=== PATIENT | female | born 1975 | race Caucasian/White ===

== ENCOUNTER 2016-07-08 11:11 | Emergency (ER) | payer OTHER ==
[2016-07-08] MEDS ORDERED: predniSONE 20 MG TAB As Ordered ONE (12:05)
--- NOTE | 2016-07-08 12:57 | EDDOCDS ---
Physician Documentation [facility] Name: Carolina Chamorro Age: 40 yrs Sex: Female : 1975 Arrival Date: 07/08/2016 Time: 11:11 Bed 13 Private MD: Sherry Gaxiola Disposition: 07/08/16 12:51 Discharged to Home/Self Care. Impression: Insect bite (nonvenomous) of hand. - Condition is Stable. - Discharge Instructions: Allergies. - Prescriptions for Prednisone 20 mg Oral Tablet - take 1 tablet by ORAL route once daily for 5 days; 5 tablet. Zyrtec 10 mg Oral Tablet - take 1 tablet by ORAL route once daily As needed; 20 tablet. - Medication Reconciliation, Local Pharmacy Hours form. - Follow up: Sherry Gaxiola MD; When: 4 - 5 days; Reason: Recheck today's complaints, Continuance of care. - Problem is an acute exacerbation. - Symptoms have improved. Historical: - Allergies: no known allergies; - Home Meds: 1. BCP Oral 1 tab once daily 2. Benadryl 3 tsp Oral (Last dose: 07/08/2016 10:30) - PMHx: rye syndrome; - PSHx: Tonsillectomy; Cholecystectomy; Adenoidectomy; Tubes in ears; - Social history: Smoking status: Patient states was never smoker of tobacco. No barriers to communication noted, The patient speaks fluent Faroese, Speaks appropriately for age. - Family history: Not pertinent. - : The pt / caregiver states he / she is not on anticoagulants. Home medication list is obtained from the patient. - Exposure Risk Screening:: None identified. 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 6 in. (167.64 cm); Pain 0/10; 11:13 Body Mass Index 22.43 (63.05 kg, 167.64 cm) dem1 MDM: 12:03 predniSONE 40 mg PO once; administer with food or milk ordered. ke 12:46 Financial registration complete. mm15 12:46 [facility] Payment Agreement was scanned into [employer] and attached to record. mm15 Administered Medications: 12:08 Drug: predniSONE 40 mg [prednisone 20 mg tablet (2 tabs)] Route: PO; js13 Signatures: Camille Kenney RN RN srm Elsner, Karl, FNP ACID TENDER Sadia Barrow RN RN js13 Corey Cano mm15 The chart was reviewed and I authenticate all verbal orders and agree with the evaluation and treatment provided.Attachments: 12:46 [facility] [place] mm15 MTDD
--- NOTE | 2016-07-08 12:57 | EDDOCDS ---
Nurse's Notes [facility] Name: Carolina Chamorro Age: 40 yrs Sex: Female : 1975 Arrival Date: 07/08/2016 Time: 11:11 Bed 13 Private MD: Sherry Gaxiola Diagnosis: Insect bite (nonvenomous) of hand Presentation: 07/08 11:14 Presenting complaint: Patient states: stung by a bee on left palm of hand. states srm having difficulty swallowing but no difficulty breathing. Presenting complaint: Patient states: no redness or swelling to bee sting site. Adult Sepsis Screening: The patient does not have new or worsening altered mentation. Patient's respiratory rate is less than 22. Systolic blood pressure is greater than 100. Patient has a qSOFA score of 0- Negative Sepsis Screen. Suicide/Homicide risk assessment- the patient denies having any suicidal and/or homicidal ideations and does not present with any other emotional, behavioral or mental health complaints. Status: Patient is not a director of employer services or dependent. Transition of care: patient was not received from another setting of care. 11:14 Acuity: HAYES Level 3 srm 11:14 Method Of Arrival: Walkin/Carried/Asstd srm Triage Assessment: 11:16 General: Appears in no apparent distress, Behavior is appropriate for age, cooperative. srm Pain: Denies pain. HIV screening NA for this visit Offered previously. 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 BCP Oral 1 tab once daily 2. Benadryl 3 tsp Oral (Last dose: 07/08/2016 10:30) - PMHx: rye syndrome; - PSHx: Tonsillectomy; Cholecystectomy; Adenoidectomy; Tubes in ears; - Social history: Smoking status: Patient states was never smoker of tobacco. No barriers to communication noted, The patient speaks fluent Equ[place] Guinean, Speaks appropriately for age. - Family history: Not pertinent. - : The pt / caregiver states he / she is not on anticoagulants. Home medication list is obtained from the patient. - Exposure Risk Screening:: None identified. Screenin:38 Screening information is obtained from the patient. Fall risk: No risks identified. js13 Assistance ADL's: requires no assistance with activities of daily living. Abuse/DV Screen: The patient / caregiver reports he/she is: not in a situation that causes fear, pain or injury. Nutritional screening: No deficits noted. Advance Directives: There is no active DNR order. home support is adequate. Assessment: 12:38 General: Appears in no apparent distress, comfortable, Behavior is appropriate for age, js13 cooperative. Pain: Denies pain. Neurological: Level of Consciousness is awake, alert. Respiratory: Airway is patent Respiratory effort is even, unlabored, Respiratory pattern is regular, symmetrical. Derm: Skin is pink, warm & dry. Vital Signs: 11:13 BP 111 / 78; Pulse 74; Resp 18; Temp 98.5(T); Pulse Ox 100% on R/A; Weight 63.05 kg; dem1 Height 5 ft. 6 in. (167.64 cm); Pain 0/10; 11:13 Body Mass Index 22.43 (63.05 kg, 167.64 cm) [facility] Vitals: 11:13 Log In Time: July 08, 2016 at 11:04. [facility] ED Course: 11:12 Patient visited by Diana Langford. dem1 11:12 Sherry Gaxiola MD is Private Physician. dem1 11:12 Patient moved to Waiting dem1 11:13 Patient moved to Pre RCE dem1 11:15 Triage Initiated [facility] 11:24 Patient moved to Triage 3 dwg 11:59 Sadia Yee,RN is Primary Nurse. jb5 11:59 Campbell Dinero FNP [facility]. ke 11:59 Patient moved to 13 jb5 12:00 Patient visited by Campbell Dinero FNP. ke 12:00 Patient visited by Campbell Dinero FNP. ke 12:30 Patient visited by Campbell Dinero FNP. ke 12:38 The patient / caregiver is instructed regarding the plan of care and ED course. js13 12:38 No IV's were initiated during this patient's visit. No procedures done that require [facility] assistance. 12:40 Patient visited by Sadia Yee RN. js13 12:46 [facility] Payment Agreement was scanned into [email or web address] and attached to record. mm15 12:50 Sherry Gaxiola MD is Referral Physician. ke Administered Medications: 12:08 Drug: predniSONE 40 mg [prednisone 20 mg tablet (2 tabs)] Route: PO; js13 Order Results: There are currently no results for this order. Outcome: 12:51 Discharge ordered by Provider. 12:56 Discharge Assessment: Patient awake, alert and oriented x 3. No cognitive and/or js13 functional deficits noted. Patient verbalized understanding of disposition instructions. patient administered narcotics - no. The following High Risk Discharge criteria are identified: None. Discharged to home ambulatory. Condition: stable. Discharge instructions given to patient, Instructed on discharge instructions, follow up and referral plans. medication usage, Demonstrated understanding of instructions, medications, Pt was receptive of discharge instructions/ teaching. Prescriptions given X 2. No special radiology studies were completed. Property :Personal belongings accompany Pt. 12:56 Patient left the ED. js13 Signatures: Chaparro Levy, RN Camille Paz RN RN Campbell Weinstein, DUCK OPERATOR DUCK OPERATOR Deepika Burroughs, GLASS FURNACE OPERATOR GLASS FURNACE OPERATOR jb5 Diana Langford JenniferRN RN js13 Corey Cano 15 GARY
--- NOTE | 2016-07-10 13:57 | EDDOCDS ---
Physician Documentation [facility] Name: Carolina Chamorro Age: 40 yrs Sex: Female : 1975 Arrival Date: 07/08/2016 Time: 11:11 Bed 13 Private MD: Sherry Gaxiola Disposition: 07/08/16 12:51 Discharged to Home/Self Care. Impression: Insect bite (nonvenomous) of hand. - Condition is Stable. - Discharge Instructions: Allergies. - Prescriptions for Prednisone 20 mg Oral Tablet - take 1 tablet by ORAL route once daily for 5 days; 5 tablet. Zyrtec 10 mg Oral Tablet - take 1 tablet by ORAL route once daily As needed; 20 tablet. - Medication Reconciliation, Local Pharmacy Hours form. - Follow up: Sherry Gaxiola MD; When: 4 - 5 days; Reason: Recheck today's complaints, Continuance of care. - Problem is an acute exacerbation. - Symptoms have improved. Historical: - Allergies: no known allergies; - Home Meds: 1. BCP Oral 1 tab once daily 2. Benadryl 3 tsp Oral (Last dose: 07/08/2016 10:30) - PMHx: rye syndrome; - PSHx: Tonsillectomy; Cholecystectomy; Adenoidectomy; Tubes in ears; - Social history: Smoking status: Patient states was never smoker of tobacco. No barriers to communication noted, The patient speaks fluent Croatian, Speaks appropriately for age. - Family history: Not pertinent. - : The pt / caregiver states he / she is not on anticoagulants. Home medication list is obtained from the patient. - Exposure Risk Screening:: None identified. 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 6 in. (167.64 cm); Pain 0/10; 11:13 Body Mass Index 22.43 (63.05 kg, 167.64 cm) dem1 MDM: 12:03 predniSONE 40 mg PO once; administer with food or milk ordered. ke 12:46 Financial registration complete. mm15 12:46 [facility] Payment Agreement was scanned into [employer] and attached to record. mm15 20:45 T-Sheet-- Draft Copy was scanned into [employer] and attached to record. rbandor Administered Medications: 12:08 Drug: predniSONE 40 mg [prednisone 20 mg tablet (2 tabs)] Route: PO; js13 Signatures: Camille Kenney RN RN srm Elsner, Karl, DRYWALL APPLICATOR DRYWALL APPLICATOR Sadia Barrow RN RN js13 Corey Cano mm15 Chaya Espinoza The chart was reviewed and I authenticate all verbal orders and agree with the evaluation and treatment provided.Attachments: 12:46 [facility] Payment Agreement mm15 20:45 T-Sheet-- Draft Copy klr Chart Complete MTDD
--- NOTE | 2016-07-10 13:57 | EDDOCDS ---
Physician Documentation [facility] Name: Carolina Chamorro Age: 40 yrs Sex: Female : 1975 Arrival Date: 07/08/2016 Time: 11:11 Bed 13 Private MD: Sherry Gaxiola Disposition: 07/08/16 12:51 Discharged to Home/Self Care. Impression: Insect bite (nonvenomous) of hand. - Condition is Stable. - Discharge Instructions: Allergies. - Prescriptions for Prednisone 20 mg Oral Tablet - take 1 tablet by ORAL route once daily for 5 days; 5 tablet. Zyrtec 10 mg Oral Tablet - take 1 tablet by ORAL route once daily As needed; 20 tablet. - Medication Reconciliation, Local Pharmacy Hours form. - Follow up: Sherry Gaxiola MD; When: 4 - 5 days; Reason: Recheck today's complaints, Continuance of care. - Problem is an acute exacerbation. - Symptoms have improved. Historical: - Allergies: no known allergies; - Home Meds: 1. BCP Oral 1 tab once daily 2. Benadryl 3 tsp Oral (Last dose: 07/08/2016 10:30) - PMHx: rye syndrome; - PSHx: Tonsillectomy; Cholecystectomy; Adenoidectomy; Tubes in ears; - Social history: Smoking status: Patient states was never smoker of tobacco. No barriers to communication noted, The patient speaks fluent Mohawk, Speaks appropriately for age. - Family history: Not pertinent. - : The pt / caregiver states he / she is not on anticoagulants. Home medication list is obtained from the patient. - Exposure Risk Screening:: None identified. 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 6 in. (167.64 cm); Pain 0/10; 11:13 Body Mass Index 22.43 (63.05 kg, 167.64 cm) dem1 MDM: 12:03 predniSONE 40 mg PO once; administer with food or milk ordered. ke 12:46 Financial registration complete. mm15 12:46 [facility] Payment Agreement was scanned into [employer] and attached to record. mm15 20:45 T-Sheet-- Draft Copy was scanned into [employer] and attached to record. brandor Administered Medications: 12:08 Drug: predniSONE 40 mg [prednisone 20 mg tablet (2 tabs)] Route: PO; js13 Signatures: Camille Kenney RN RN srm Elsner, Karl, RV PARTS AND SERVICE DIRECTOR RV PARTS AND SERVICE DIRECTOR Sadia Barrow RN RN js13 Corey Cano mm15 Chaya Espinoza The chart was reviewed and I authenticate all verbal orders and agree with the evaluation and treatment provided.Attachments: 12:46 [facility] [place] Payment Agreement mm15 20:45 T-Sheet-- Draft Copy klr Chart Complete MTDD
--- NOTE | 2016-07-10 13:57 | EDDOCDS ---
Nurse's Notes [facility] Name: Carolina Chamorro Age: 40 yrs Sex: Female : 1975 Arrival Date: 07/08/2016 Time: 11:11 Bed 13 Private MD: Sherry Gaxiola Diagnosis: Insect bite (nonvenomous) of hand Presentation: 07/08 11:14 Presenting complaint: Patient states: stung by a bee on left palm of hand. states srm having difficulty swallowing but no difficulty breathing. Presenting complaint: Patient states: no redness or swelling to bee sting site. Adult Sepsis Screening: The patient does not have new or worsening altered mentation. Patient's respiratory rate is less than 22. Systolic blood pressure is greater than 100. Patient has a qSOFA score of 0- Negative Sepsis Screen. Suicide/Homicide risk assessment- the patient denies having any suicidal and/or homicidal ideations and does not present with any other emotional, behavioral or mental health complaints. Status: Patient is not a pharmacy services director or dependent. Transition of care: patient was not received from another setting of care. 11:14 Acuity: HAYES Level 3 srm 11:14 Method Of Arrival: Walkin/Carried/Asstd srm Triage Assessment: 11:16 General: Appears in no apparent distress, Behavior is appropriate for age, cooperative. srm Pain: Denies pain. HIV screening NA for this visit Offered previously. 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 BCP Oral 1 tab once daily 2. Benadryl 3 tsp Oral (Last dose: 07/08/2016 10:30) - PMHx: rye syndrome; - PSHx: Tonsillectomy; Cholecystectomy; Adenoidectomy; Tubes in ears; - Social history: Smoking status: Patient states was never smoker of tobacco. No barriers to communication noted, The patient speaks fluent Belarusian, Speaks appropriately for age. - Family history: Not pertinent. - : The pt / caregiver states he / she is not on anticoagulants. Home medication list is obtained from the patient. - Exposure Risk Screening:: None identified. Screenin:38 Screening information is obtained from the patient. Fall risk: No risks identified. js13 Assistance ADL's: requires no assistance with activities of daily living. Abuse/DV Screen: The patient / caregiver reports he/she is: not in a situation that causes fear, pain or injury. Nutritional screening: No deficits noted. Advance Directives: There is no active DNR order. home support is adequate. Assessment: 12:38 General: Appears in no apparent distress, comfortable, Behavior is appropriate for age, js13 cooperative. Pain: Denies pain. Neurological: Level of Consciousness is awake, alert. Respiratory: Airway is patent Respiratory effort is even, unlabored, Respiratory pattern is regular, symmetrical. Derm: Skin is pink, warm & dry. Vital Signs: 11:13 BP 111 / 78; Pulse 74; Resp 18; Temp 98.5(T); Pulse Ox 100% on R/A; Weight 63.05 kg; dem1 Height 5 ft. 6 in. (167.64 cm); Pain 0/10; 11:13 Body Mass Index 22.43 (63.05 kg, 167.64 cm) [facility] Vitals: 11:13 Log In Time: July 08, 2016 at 11:04. [facility] ED Course: 11:12 Patient visited by Diana Langford. dem1 11:12 Sherry Gaxiola MD is Private Physician. dem1 11:12 Patient moved to Waiting dem1 11:13 Patient moved to Pre RCE dem1 11:15 Triage Initiated srm 11:24 Patient moved to Triage 3 dwg 11:59 Sadia Yee,RN is Primary Nurse. jb5 11:59 Campbell Dinero FNP is [facility]. ke 11:59 Patient moved to 13 jb5 12:00 Patient visited by Campbell Dinero FNP. ke 12:00 Patient visited by Campbell Dinero FNP. ke 12:30 Patient visited by Campbell Dinero FNP. ke 12:38 The patient / caregiver is instructed regarding the plan of care and ED course. js13 12:38 No IV's were initiated during this patient's visit. No procedures done that require [facility] assistance. 12:40 Patient visited by Sadia Yee RN. js13 12:46 [facility] Payment Agreement was scanned into [employer] and attached to record. mm15 12:50 Sherry Gaxiola MD is Referral Physician. ke 13:19 Patient name changed from Carolina\S\\S\Littell\S\ to Carolina\S\ \S\Littell. EDMS 20:45 T-Sheet-- Draft Copy was scanned into [employer] and attached to record. klr Administered Medications: 12:08 Drug: predniSONE 40 mg [prednisone 20 mg tablet (2 tabs)] Route: PO; js13 Order Results: There are currently no results for this order. Outcome: 12:51 Discharge ordered by Provider. 12:56 Discharge Assessment: Patient awake, alert and oriented x 3. No cognitive and/or js13 functional deficits noted. Patient verbalized understanding of disposition instructions. patient administered narcotics - no. The following High Risk Discharge criteria are identified: None. Discharged to home ambulatory. Condition: stable. Discharge instructions given to patient, Instructed on discharge instructions, follow up and referral plans. medication usage, Demonstrated understanding of instructions, medications, Pt was receptive of discharge instructions/ teaching. Prescriptions given X 2. No special radiology studies were completed. Property :Personal belongings accompany Pt. 12:56 Patient left the ED. js13 Signatures: Dispatcher MedTransitScreen EDMS Chaparro Levy, RN Camille aPz, RN RN Campbell Weinstein, MAIL SORTER MAIL SORTER Deepika Burroughs, DARIAN BRANCH OFFICE MANAGER [email or web address] Diana Langford Jennifer, RN RN js13 Corey Cano mm15 Chaya Espinoza Chart Complete MTDBrendan
== END 2016-07-08 12:56 | disposition home or self-care (01) ==
LOC: M ED 11:11
DX: Z91.030 Bee allergy status (principal); G93.89 Other specified disorders of brain

== ENCOUNTER → 2016-10-06 | Outpatient (CLI) | payer OTHER ==
[2016-10-06 11:22] LABS: BASO % 0.4 % (0.0-1.0); EOS # 0.1 K/mm3 (0.0-0.50); EOS % 1.7 % (0.0-3.0); LARGE UNSTAINED CELL # 0.1 K/mm3 (0.0-0.4); LARGE UNSTAINED CELL % 2.4 % (0.0-4.0); LYMPH # 1.2 K/mm3 (1.5-4.5); LYMPH % 18.7 % (24.0-44.0); MEAN CORPUSCULAR HEMOGLOBIN 31.8 pg (27.0-33.0); MEAN CORPUSCULAR HGB CONC 34.3 g/dl (32.0-36.5); MEAN CORPUSCULAR VOLUME 92.7 fl (80.0-96.0); MONO # 0.5 K/mm3 (0.0-0.8); MONO % 8.5 % (0.0-5.0); NEUTROPHILS # 3.8 K/mm3 (1.8-7.7); NEUTROPHILS % 68.3 % (36.0-66.0); PLATELET COUNT, AUTOMATED 362 k/mm3 (150-450); RED CELL DISTRIBUTION WIDTH 12.1 % (11.5-14.5); WHITE BLOOD COUNT 5.5 K/mm3 (4.0-10.0)
[2016-10-06 11:58] LABS: ALBUMIN 3.5 GM/DL (3.2-5.2); ALBUMIN/GLOBULIN RATIO 0.88 (1.00-1.93); ALKALINE PHOSPHATASE 45 U/L (45-117); ALT/SGPT 23 U/L (12-78); ANION GAP 3 MEQ/L (8-16); AST/SGOT 13 U/L (15-37); BILIRUBIN,TOTAL 0.3 MG/DL (0.2-1.0); BLOOD UREA NITROGEN 15 MG/DL (7-18); CALCIUM LEVEL 8.8 MG/DL (8.5-10.1); CARBON DIOXIDE LEVEL 32 MEQ/L (21-32); CHLORIDE LEVEL 106 MEQ/L (98-107); CHOLESTEROL LEVEL 184 MG/DL (<200); GLOMERULAR FILTRATION RATE > 60.0 (>60); GLUCOSE, FASTING 81 MG/DL (70-105); POTASSIUM SERUM 4.5 MEQ/L (3.5-5.1); SODIUM LEVEL 141 MEQ/L (136-145); TOTAL PROTEIN 7.5 GM/DL (6.4-8.2); TRIGLYCERIDES LEVEL 58 MG/DL (<150)
== END ==
LOC: M WUC 09:00
PROVIDERS: ATTEND Family Medicine
DX: Z00.00 Encounter for general adult medical examination without abnormal findings (principal); R53.83 Other fatigue; K59.00 Constipation, unspecified

== ENCOUNTER → 2016-12-20 | Outpatient (REF) | payer OTHER | LOC: M LAB REF 20:47 | PROVIDERS: ATTEND Physician Assistant | DX: J02.9 Acute pharyngitis, unspecified (principal) ==

== ENCOUNTER → 2017-04-13 | Outpatient (REF) | payer OTHER | LOC: M LAB REF 17:35 | PROVIDERS: ATTEND Family Medicine | DX: Z01.419 Encounter for gynecological examination (general) (routine) without abnormal findings (principal); R10.84 Generalized abdominal pain; Z11.3 Encounter for screening for infections with a predominantly sexual mode of transmission ==

== ENCOUNTER → 2018-07-04 | Outpatient (REF) | payer OTHER ==
[2018-07-04 16:53] LABS: CHLAMYDIA DNA AMPLIFICATION NEGATIVE (NEGATIVE); GC DNA AMPLIFICATION NEGATIVE (NEGATIVE)
== END ==
LOC: M LAB REF 13:16
PROVIDERS: ATTEND Family Medicine
DX: Z01.419 Encounter for gynecological examination (general) (routine) without abnormal findings (principal)

== ENCOUNTER → 2018-07-04 | Outpatient (REF) | payer OTHER ==
[2018-07-06 14:17] LABS: HPV HYBRID CAPTURE II Negative (Negative)
== END ==
LOC: M LAB REF 13:23
PROVIDERS: ATTEND Family Medicine
DX: Z01.419 Encounter for gynecological examination (general) (routine) without abnormal findings (principal); Z11.51 Encounter for screening for human papillomavirus (HPV)
CPT/HCPCS: 87624; G0123

== ENCOUNTER → 2018-09-29 | Outpatient (REF) | payer OTHER | LOC: M LAB REF 18:54 | PROVIDERS: ATTEND Physician Assistant | DX: J02.9 Acute pharyngitis, unspecified (principal) ==

== ENCOUNTER 2018-10-01 01:25 | Emergency (ER) | payer OTHER ==
[~2018-10-01] VITALS: Ht 167.6 cm; Wt 60.0 kg
[2018-10-01 01:56] LABS: BASO % 0.3 % (0.0-1.0); EOS # 0.2 10^3/uL (0.0-0.50); EOS % 2.5 % (0.0-3.0); HEMATOCRIT 35.8 % (36.0-47.0); HEMOGLOBIN 12.2 g/dl (12.0-15.5); LYMPH # 1.6 10^3/uL (1.5-4.5); LYMPH % 16.4 % (24.0-44.0); MEAN CORPUSCULAR HEMOGLOBIN 31.3 pg (27.0-33.0); MEAN CORPUSCULAR HGB CONC 34.1 g/dl (32.0-36.5); MEAN CORPUSCULAR VOLUME 91.8 fl (80.0-96.0); MONO # 1.3 10^3/uL (0.0-0.8); MONO % 14.1 % (0.0-5.0); NEUTROPHILS # 6.3 10^3/uL (1.8-7.7); NEUTROPHILS % 66.3 % (36.0-66.0); PLATELET COUNT, AUTOMATED 307 10^3/uL (150-450); WHITE BLOOD COUNT 9.5 10^3/uL (4.0-10.0)
[2018-10-01 02:07] LABS: INR 0.97
[2018-10-01 02:49] LABS: ALBUMIN 3.5 GM/DL (3.2-5.2); ALT/SGPT 14 U/L (12-78); BILIRUBIN,TOTAL 0.2 MG/DL (0.2-1.0); BLOOD UREA NITROGEN 12 MG/DL (7-18); CALCIUM LEVEL 8.3 MG/DL (8.5-10.1); CARBON DIOXIDE LEVEL 24 MEQ/L (21-32); CHLORIDE LEVEL 110 MEQ/L (98-107); CPK CREATINE PHOSPHOKINASE 210 U/L (26-192); CREATININE FOR GFR 0.72 MG/DL (0.55-1.30); GLOMERULAR FILTRATION RATE > 60.0 (>58); GLUCOSE, FASTING 94 MG/DL (70-100); LIPASE 125 U/L (73-393); MB/CK RELATIVE INDEX 8.62 (< OR =4); POTASSIUM SERUM 3.9 MEQ/L (3.5-5.1); SODIUM LEVEL 141 MEQ/L (136-145); TOTAL PROTEIN 6.8 GM/DL (6.4-8.2)
[2018-10-01] MEDS ORDERED: ASPIRIN 81 MG CHEW TABLET PO ONE (03:15)
[2018-10-01] MEDS ORDERED: ISOVUE-370 76% 100ML VIAL (Q9967) As Ordered ONE (03:18)
--- NOTE | 2018-10-01 03:40 | REPVR ---
EXAM: CT Angiography Chest With Contrast EXAM DATE/TIME: 10/01/2018 3:24 AM CLINICAL HISTORY: 42 years old, female; Chest pain, elevated troponin TECHNIQUE: Imaging protocol: Axial computed tomographic angiography images of the chest with intravenous contrast using CT angiography protocol. Coronal and sagittal reformatted images were created and reviewed. 3D rendering: MIP reconstructed images were created and reviewed. Radiation optimization: All CT scans at this facility use at least one of these dose optimization techniques: automated exposure control; mA and/or kV adjustment per patient size (includes targeted exams where dose is matched to clinical indication); or iterative reconstruction. Contrast material: ISOVUE 370; Contrast volume: 75 ml; Contrast route: IV; COMPARISON: CR PORTABLE CHEST X-RAY 10/01/2018 2:30 AM (The report from this study was not available for review at the time of this interpretation.) FINDINGS: Pulmonary arteries: No pulmonary embolism is identified. Aorta: There is no thoracic aortic aneurysm, pseudoaneurysm, penetrating atherosclerotic ulcer, or dissection. Lungs: There is a 3 mm calcified granuloma in the right lung apex. The lungs are otherwise clear. There is no lung consolidation, pulmonary infarct, or mass. No emphysematous changes or interstitial lung disease is noted. The major airways are patent. Pleural space: Normal. No pneumothorax. No pleural effusion. Heart: No cardiomegaly. No pericardial effusion. The ratio of the diameter of the right ventricle to the diameter of the left ventricle measures less than 1, which is within normal limits and there is no evidence for a right ventricular strain. There are coronary artery calcifications. Mediastinum: No mediastinal mass, hemorrhage, or pneumomediastinum is noted. Adrenals: Normal. No adrenal mass. Lymph nodes: Normal. No enlarged lymph nodes. Bones/joints: The imaged bony structures are intact. There is no suspicious osteolytic or osteoblastic lesion. Soft tissues: Unremarkable. IMPRESSION: No acute findings in the chest. No pulmonary embolism. Electronically signed by: Desean Miguel On 10/01/2018 03:39:51 AM
[2018-10-01] MEDS ORDERED: HEPARIN DRIP 25,000 UNITS in APPROPRIATE DILUENT 1 EA IV SCH (03:53)
[2018-10-01] MEDS ORDERED: CLOPIDOGREL 300 MG TAB (PLAVIX) PO STA (03:53)
[2018-10-01] MEDS ORDERED: HEPARIN SOD (PORCINE) 5000 UNITS/ML VIAL IV ONE (04:00)
[2018-10-01 04:45] VITALS: BP 113/76
--- NOTE | 2018-10-01 04:59 | REP ---
Clinical: Acute chest pain . Comparison: None . Findings: The mediastinum and cardiac silhouette are stable and within normal limits for portable technique. The lung bethea are clear without acute consolidation, effusion, or pneumothorax. Skeletal structures are intact. Impression: No acute cardiopulmonary process appreciated. Electronically Signed by Nelson Eubanks MD 10/01/2018 04:50 A
--- NOTE | 2018-10-01 23:35 | ECGEPIP ---
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
== END 2018-10-01 04:49 | disposition short-term general hospital (02) ==
LOC: M ED 01:25
DX: I21.4 Non-ST elevation (NSTEMI) myocardial infarction (principal); Z82.49 Family history of ischemic heart disease and other diseases of the circulatory system
CPT/HCPCS: 71045; 71275; 80053; 82550; 82553; 83690; 84484; 85025; 85610; 93005; 93041; 94760; 99285; Q9967

== ENCOUNTER → 2018-10-12 | Outpatient (CLI) | payer OTHER ==
[2018-10-12 20:06] LABS: BLOOD UREA NITROGEN 14 MG/DL (7-18); CALCIUM LEVEL 8.7 MG/DL (8.5-10.1); CARBON DIOXIDE LEVEL 29 MEQ/L (21-32); CHLORIDE LEVEL 105 MEQ/L (98-107); CREATININE FOR GFR 0.74 MG/DL (0.55-1.30); GLOMERULAR FILTRATION RATE > 60.0 (>58); GLUCOSE, FASTING 74 MG/DL (70-100); MAGNESIUM LEVEL 2.2 MG/DL (1.8-2.4); POTASSIUM SERUM 3.9 MEQ/L (3.5-5.1); SODIUM LEVEL 142 MEQ/L (136-145)
== END ==
LOC: M WUC 15:56
PROVIDERS: ATTEND Family Medicine
DX: B33.23 Viral pericarditis (principal)

== ENCOUNTER → 2018-12-14 | Outpatient (REF) | payer OTHER | LOC: M LAB REF 12:37 | PROVIDERS: ATTEND Nurse Practitioner Family | DX: R30.0 Dysuria (principal) ==

== ENCOUNTER → 2018-12-22 | Outpatient (REF) | payer OTHER ==
[2018-12-22 21:22] LABS: CHLAMYDIA DNA AMPLIFICATION NEGATIVE (NEGATIVE); GC DNA AMPLIFICATION NEGATIVE (NEGATIVE)
== END ==
LOC: M LAB REF 09:48
PROVIDERS: ATTEND Physician Assistant
DX: R30.0 Dysuria (principal)

== ENCOUNTER 2019-10-20 17:33 | Emergency (ER) | payer OTHER ==
[~2019-10-20] VITALS: Ht 167.6 cm; Wt 64.6 kg
[2019-10-20 17:55] VITALS: BP 128/71
[2019-10-20] MEDS ORDERED: ASPIRIN 81 MG CHEW TABLET PO ONE (18:00)
[2019-10-20] MEDS ORDERED: NITROGLYCERIN 0.4 MG SUBL TABLET SL PRN (18:00)
[2019-10-20] MEDS ORDERED: ASPI81TA85 PO (18:06)
[2019-10-20 18:13] LABS: BASO % 0.3 % (0.0-1.0); EOS # 0.1 10^3/uL (0.0-0.5); EOS % 1.1 % (0.0-3.0); HEMATOCRIT 36.9 % (36.0-47.0); HEMOGLOBIN 12.6 g/dl (12.0-15.5); LYMPH # 1.7 10^3/uL (1.5-5.0); LYMPH % 23.6 % (24.0-44.0); MEAN CORPUSCULAR HEMOGLOBIN 30.8 pg (27.0-33.0); MEAN CORPUSCULAR HGB CONC 34.1 g/dl (32.0-36.5); MEAN CORPUSCULAR VOLUME 90.2 fl (80.0-96.0); MONO # 0.6 10^3/uL (0.0-0.8); MONO % 9.1 % (0.0-5.0); NEUTROPHILS # 4.6 10^3/uL (1.5-8.5); NEUTROPHILS % 65.6 % (36.0-66.0); PLATELET COUNT, AUTOMATED 291 10^3/uL (150-450); RED BLOOD COUNT 4.09 10^6/uL (4.00-5.40)
[2019-10-20 18:24] LABS: INR 1.01
[2019-10-20 18:25] LABS: PARTIAL THROMBOPLASTIN TIME 27.6 SECONDS (25.0-38.4)
--- NOTE | 2019-10-20 18:25 | REP ---
Clinical: Chest pain . Comparison: 10/01/2018 . Findings: The mediastinum and cardiac silhouette are stable and within normal limits for portable technique. The lung bethea are clear without acute consolidation, effusion, or pneumothorax. Skeletal structures are intact. Impression: No acute cardiopulmonary process appreciated. Electronically Signed by Nelson Eubanks MD 10/20/2019 06:17 P
[2019-10-20 18:56] LABS: ALBUMIN 3.7 GM/DL (3.2-5.2); ALT/SGPT 17 U/L (12-78); BILIRUBIN,DIRECT 0.1 MG/DL (0.0-0.2); BILIRUBIN,TOTAL 0.3 MG/DL (0.2-1.0); BLOOD UREA NITROGEN 18 MG/DL (7-18); CALCIUM LEVEL 9.1 MG/DL (8.5-10.1); CARBON DIOXIDE LEVEL 26 MEQ/L (21-32); CHLORIDE LEVEL 106 MEQ/L (98-107); CK-MB VALUE MASS < 1.0 NG/ML (<3.6); CPK CREATINE PHOSPHOKINASE 67 U/L (26-192); CREATININE FOR GFR 0.78 MG/DL (0.55-1.30); GLOMERULAR FILTRATION RATE > 60.0 (>58); GLUCOSE, FASTING 73 MG/DL (70-100); LIPASE 120 U/L (73-393); MB/CK RELATIVE INDEX 1.49 (< OR =4); SODIUM LEVEL 139 MEQ/L (136-145); THYROID STIMULATING HORMONE 0.439 uIU/ML (0.358-3.740); TOTAL PROTEIN 7.1 GM/DL (6.4-8.2); TROPONIN I < 0.02 NG/ML (< 0.10)
--- NOTE | 2019-10-20 19:24 | ECGEPIP ---
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
[2019-10-20] MEDS ORDERED: ISOVUE-370 76% 100ML VIAL As Ordered ONE (19:42)
--- NOTE | 2019-10-20 20:18 | REPVR ---
PROCEDURE INFORMATION: Exam: CT Angiography Chest With Contrast Exam date and time: 10/20/2019 7:50 PM Age: 43 years old Clinical indication: Chest pain TECHNIQUE: Imaging protocol: Computed tomographic angiography of the chest with intravenous contrast. 3D rendering: MIP and/or 3D reconstructed images were created by the technologist. Radiation optimization: All CT scans at this facility use at least one of these dose optimization techniques: automated exposure control; mA and/or kV adjustment per patient size (includes targeted exams where dose is matched to clinical indication); or iterative reconstruction. Contrast material: ISO 370; Contrast volume: 75 ml; Contrast route: IV; COMPARISON: CT ANGIO CHEST 10/01/2018 3:16 AM FINDINGS: Pulmonary arteries: No pulmonary embolism. Aorta: The thoracic aorta is intact and patent. There is no thoracic aortic aneurysm, pseudoaneurysm, penetrating atherosclerotic ulcer, intramural hematoma, or dissection. Tracheobronchial tree: Intact and patent. Lungs: There is a 3 mm calcified granuloma in the right lung apex (image 17 of the axial series 402), which is unchanged compared to the prior CTA chest on 10/01/2018. The lungs are otherwise clear. There is no lung consolidation or mass. No emphysematous changes or interstitial lung disease is noted. Pleural space: Normal. No pneumothorax or pleural effusion. Heart: No cardiomegaly or pericardial effusion. The ratio of the diameter of the right ventricle to the diameter of the left ventricle measures less than 1, which is within normal limits and there is no evidence for a right ventricular strain. Mediastinal space: No mediastinal mass, fluid collection, or pneumomediastinum. Lymph nodes: No enlarged lymph nodes. Diaphragm: Intact. Gallbladder and bile ducts: There has been a cholecystectomy. There is no fluid collection in the gallbladder fossa. No dilation of the bile ducts is noted. No calcified stones are seen in the common bile duct. Spleen: The spleen is heterogeneous in appearance, which is likely secondary to the arterial timing of the contrast bolus. No splenomegaly. Adrenals: Normal. No adrenal mass is noted. Bones/joints: There is no fracture or dislocation. No suspicious osteolytic or osteoblastic lesion. Soft tissues: Unremarkable. IMPRESSION: No acute findings in the chest. No pulmonary embolism. No significant change compared to the prior CTA chest on 10/01/2018. Electronically signed by: Desean Miguel On 10/20/2019 20:17:27 PM
[2019-10-21 00:04] LABS: CK-MB VALUE MASS < 1.0 NG/ML (<3.6); CPK CREATINE PHOSPHOKINASE 58 U/L (26-192); MB/CK RELATIVE INDEX 1.72 (< OR =4); TROPONIN I < 0.02 NG/ML (< 0.10)
[2019-10-21 00:15] VITALS: BP 107/56
--- NOTE | 2019-10-21 21:00 | ECGEPIP ---
[facility] - ED Test Date: 2019-10-20 Pat Name: NATE HUITRON Department: Room: - Gender: Female [employer]: : 1975 Requested By: KENYON Hernandez Order Number: [id number] Reading MD: Nishi Clark Measurements Intervals [place] Rate: 76 P: 68 NM: 161 QRS: 35 QRSD: 88 T: 49 QT: 354 QTc: 399 Interpretive Statements SINUS RHYTHM WITH SINUS ARRHYTHMIA POSSIBLE RIGHT VENTRICULAR CONDUCTION DELAY NSTTW abnormalities SIMILAR 10/20/19 Electronically Signed on 10-21-2019 21:00:21 EDT by Nishi Clark
== END 2019-10-21 00:30 | disposition home or self-care (01) ==
LOC: M ED 17:33
DX: R07.9 Chest pain, unspecified (principal); R53.83 Other fatigue; I31.9 Disease of pericardium, unspecified; Z79.82 Long term (current) use of aspirin
CPT/HCPCS: 71045; 71275; 80048; 80076; 82550; 82553; 83690; 84439; 84443; 84484; 85025; 85610; 85730; 93005; 93041; 94760; 99285; Q9967

== ENCOUNTER → 2022-01-11 | Outpatient (REF) | payer OTHER ==
[~2022-01-11] MED LIST: ASPI81TA86 PO
== END ==
LOC: M LAB REF 17:16
PROVIDERS: ATTEND Nurse Practitioner Family
DX: Z12.4 Encounter for screening for malignant neoplasm of cervix (principal); R87.612 Low grade squamous intraepithelial lesion on cytologic smear of cervix (LGSIL)
CPT/HCPCS: 87624; G0123

== ENCOUNTER → 2022-03-09 | Outpatient (CLI) | payer OTHER | LOC: M PLAIMG 16:11 | PROVIDERS: ATTEND Nurse Practitioner Family | DX: M25.512 Pain in left shoulder (principal); M25.532 Pain in left wrist ==

== ENCOUNTER → 2022-06-21 | Outpatient (CLI) | payer OTHER ==
[2022-06-21 12:01] LABS: ALKALINE PHOSPHATASE 64 U/L (46-116); ALT/SGPT 12 U/L (7.0-40); AST/SGOT 17 U/L (<34); BILIRUBIN,TOTAL 0.4 MG/DL (0.3-1.2); BLOOD UREA NITROGEN 15 MG/DL (9-23); CARBON DIOXIDE LEVEL 28 MMOL/L (20-31); CHLORIDE LEVEL 105 MMOL/L (98-107); CHOLESTEROL LEVEL 171 MG/DL (<200); CREATININE FOR GFR 0.81 MG/DL (0.55-1.30); GLOMERULAR FILTRATION RATE > 60.0 (>58); GLUCOSE, FASTING 97 MG/DL (60-100); HDL CHOLESTEROL 63.3 MG/DL (>40); LDL CHOLESTEROL 93.7 MG/DL (<100); NON-HDL-C 108 MG/DL; POTASSIUM SERUM 4.1 MMOL/L (3.5-5.1); SODIUM LEVEL 138 MMOL/L (136-145); TOTAL PROTEIN 7.3 G/DL (5.7-8.2); TRIGLYCERIDES LEVEL 70 MG/DL (<150)
[2022-06-21 12:03] LABS: FREE T4 1.04 NG/DL (0.89-1.76)
[2022-06-21 12:08] LABS: BASO % 0.6 % (0.0-1.0); EOS # 0.1 10^3/uL (0.0-0.5); EOS % 2.1 % (0.0-3.0); HEMATOCRIT 42.8 % (36.0-47.0); HEMOGLOBIN 14.3 g/dl (12.0-15.5); LYMPH # 1.7 10^3/uL (1.5-5.0); LYMPH % 25.1 % (24.0-44.0); MEAN CORPUSCULAR HGB CONC 33.4 g/dl (32.0-36.5); MEAN CORPUSCULAR VOLUME 92.8 fl (80.0-96.0); MONO # 0.7 10^3/uL (0.0-0.8); MONO % 10.3 % (2.0-8.0); NEUTROPHILS # 4.1 10^3/uL (1.5-8.5); NEUTROPHILS % 61.8 % (36.0-66.0); PLATELET COUNT, AUTOMATED 400 10^3/uL (150-450); RED BLOOD COUNT 4.61 10^6/uL (4.00-5.40); WHITE BLOOD COUNT 6.7 10^3/uL (4.0-10.0)
== END ==
LOC: M WUC 09:10
PROVIDERS: ATTEND Nurse Practitioner Family
DX: Z00.00 Encounter for general adult medical examination without abnormal findings (principal); R63.5 Abnormal weight gain

== ENCOUNTER → 2022-09-21 | Outpatient (CLI) | payer OTHER | LOC: M WUC 12:15 | PROVIDERS: ATTEND Obstetrics & Gynecology Obstetrics | DX: R87.619 Unspecified abnormal cytological findings in specimens from cervix uteri (principal); N95.9 Unspecified menopausal and perimenopausal disorder ==

== ENCOUNTER → 2023-08-14 | Outpatient (CLI) | payer OTHER ==
[2023-08-14 16:59] LABS: BASO # 0.1 10^3/uL (0.0-0.2); BASO % 0.6 % (0.0-1.0); EOS # 0.1 10^3/uL (0.0-0.5); EOS % 1.4 % (0.0-3.0); HEMATOCRIT 41.7 % (36.0-47.0); HEMOGLOBIN 13.9 g/dl (12.0-15.5); LYMPH # 2.6 10^3/uL (1.5-5.0); LYMPH % 32.1 % (24.0-44.0); MEAN CORPUSCULAR HEMOGLOBIN 31.2 pg (27.0-33.0); MEAN CORPUSCULAR HGB CONC 33.3 g/dl (32.0-36.5); MEAN CORPUSCULAR VOLUME 93.7 fl (80.0-96.0); MONO # 0.8 10^3/uL (0.0-0.8); MONO % 10.2 % (2.0-8.0); NEUTROPHILS # 4.5 10^3/uL (1.5-8.5); NEUTROPHILS % 55.5 % (36.0-66.0); PLATELET COUNT, AUTOMATED 434 10^3/uL (150-450); RED BLOOD COUNT 4.45 10^6/uL (4.00-5.40); WHITE BLOOD COUNT 8.1 10^3/uL (4.0-10.0)
[2023-08-14 17:10] LABS: ERYTHROCYTE SEDIMENTATION RATE 32 mm/hr (0-20)
[2023-08-14 17:22] LABS: BLOOD UREA NITROGEN 13 MG/DL (9-23); CALCIUM LEVEL 8.6 MG/DL (8.5-10.1); CARBON DIOXIDE LEVEL 27 MMOL/L (20-31); CHLORIDE LEVEL 104 MMOL/L (98-107); CREATININE FOR GFR 0.74 MG/DL (0.55-1.30); GLOMERULAR FILTRATION RATE > 60.0 (>58); GLUCOSE, FASTING 82 MG/DL (60-100); POTASSIUM SERUM 3.8 MMOL/L (3.5-5.1); SODIUM LEVEL 139 MMOL/L (136-145)
[2023-08-14 17:24] LABS: RHEUMATOID FACTOR QUANT 4.5 IU/ML (<14)
== END ==
LOC: M WUC 11:42
PROVIDERS: ATTEND Physician Assistant Surgical
DX: S23.420A Sprain of sternoclavicular (joint) (ligament), initial encounter (principal); Y92.9 Unspecified place or not applicable; Y93.9 Activity, unspecified

== ENCOUNTER 2023-09-15 17:04 | Emergency (ER) | payer OTHER ==
[~2023-09-15] VITALS: Ht 167.6 cm; Wt 75.5 kg
[2023-09-15 17:43] LABS: BASO # 0.1 10^3/uL (0.0-0.2); BASO % 0.5 % (0.0-1.0); EOS # 0.1 10^3/uL (0.0-0.5); EOS % 1.4 % (0.0-3.0); HEMATOCRIT 37.3 % (36.0-47.0); HEMOGLOBIN 13.1 g/dl (12.0-15.5); LYMPH # 2.4 10^3/uL (1.5-5.0); LYMPH % 26.2 % (24.0-44.0); MEAN CORPUSCULAR HGB CONC 35.1 g/dl (32.0-36.5); MEAN CORPUSCULAR VOLUME 91.2 fl (80.0-96.0); MONO % 10.4 % (2.0-8.0); NEUTROPHILS # 5.7 10^3/uL (1.5-8.5); NEUTROPHILS % 61.3 % (36.0-66.0); PLATELET COUNT, AUTOMATED 390 10^3/uL (150-450); RED BLOOD COUNT 4.09 10^6/uL (4.00-5.40); WHITE BLOOD COUNT 9.3 10^3/uL (4.0-10.0)
[2023-09-15 17:56] LABS: INR 1.01
[2023-09-15 18:36] LABS: ALBUMIN 3.4 G/DL (3.2-5.2); ALKALINE PHOSPHATASE 68 U/L (46-116); ALT/SGPT 15 U/L (7.0-40); AST/SGOT 11 U/L (<34); BILIRUBIN,DIRECT < 0.1 MG/DL (<0.4); BILIRUBIN,TOTAL 0.2 MG/DL (0.3-1.2); BLOOD UREA NITROGEN 13 MG/DL (9-23); CALCIUM LEVEL 8.3 MG/DL (8.5-10.1); CARBON DIOXIDE LEVEL 25 MMOL/L (20-31); CHLORIDE LEVEL 104 MMOL/L (98-107); CK-MB VALUE MASS < 1.0 NG/ML (<3.6); CPK CREATINE PHOSPHOKINASE 76 U/L (34-145); CREATININE FOR GFR 0.83 MG/DL (0.55-1.30); GLOMERULAR FILTRATION RATE > 60.0 (>58); GLUCOSE, FASTING 85 MG/DL (60-100); LIPASE 29 U/L (12-53); MB/CK RELATIVE INDEX 1.31 (< OR =4); POTASSIUM SERUM 3.4 MMOL/L (3.5-5.1); SODIUM LEVEL 138 MMOL/L (136-145); TOTAL PROTEIN 7.1 G/DL (5.7-8.2)
[2023-09-15] MEDS ORDERED: ISOVUE-370 76% 100ML VIAL As Ordered ONE (18:53)
[2023-09-15 19:24] LABS: FREE T4 0.96 NG/DL (0.89-1.76); THYROID STIMULATING HORMONE 1.127 uIU/ML (0.55-4.78)
[2023-09-15 20:00] VITALS: BP 127/78; TEMP 98; O2SAT 98
[2023-09-15] MEDS ORDERED: HOLTER MONITOR XX (20:01)
== END 2023-09-15 20:18 | disposition home or self-care (01) ==
LOC: M ED 17:04
DX: R00.2 Palpitations (principal)
CPT/HCPCS: 36415; 71045; 71275; 80048; 80076; 82550; 82553; 83690; 84439; 84443; 84484; 85025; 85610; 93005; 93041; 94760; 99285; Q9967

== ENCOUNTER → 2023-09-16 | Outpatient (CLI) | payer OTHER ==
[~2023-09-16] MED LIST changes: +HOLTER MONITOR XX
== END ==
LOC: M EKG 14:13
PROVIDERS: ATTEND Physician Assistant Medical
DX: R00.2 Palpitations (principal)

== ENCOUNTER → 2023-12-08 | Outpatient (CLI) | payer OTHER ==
[2023-12-08 10:10] LABS: BASO % 0.3 % (0.0-1.0); EOS # 0.2 10^3/uL (0.0-0.5); HEMATOCRIT 40.6 % (36.0-47.0); HEMOGLOBIN 13.6 g/dl (12.0-15.5); LYMPH % 22.7 % (24.0-44.0); MEAN CORPUSCULAR HEMOGLOBIN 30.6 pg (27.0-33.0); MEAN CORPUSCULAR HGB CONC 33.5 g/dl (32.0-36.5); MEAN CORPUSCULAR VOLUME 91.4 fl (80.0-96.0); MONO # 0.9 10^3/uL (0.0-0.8); MONO % 10.7 % (2.0-8.0); NEUTROPHILS # 5.5 10^3/uL (1.5-8.5); PLATELET COUNT, AUTOMATED 391 10^3/uL (150-450); RED BLOOD COUNT 4.44 10^6/uL (4.00-5.40); WHITE BLOOD COUNT 8.6 10^3/uL (4.0-10.0)
[2023-12-08 10:17] LABS: ALBUMIN 3.5 G/DL (3.2-5.2); ALKALINE PHOSPHATASE 68 U/L (46-116); ALT/SGPT 15 U/L (7.0-40); AST/SGOT 8 U/L (<34); BILIRUBIN,TOTAL 0.4 MG/DL (0.3-1.2); BLOOD UREA NITROGEN 14 MG/DL (9-23); CALCIUM LEVEL 8.5 MG/DL (8.5-10.1); CARBON DIOXIDE LEVEL 27 MMOL/L (20-31); CHLORIDE LEVEL 105 MMOL/L (98-107); CHOLESTEROL LEVEL 166 MG/DL (<200); CHOLESTEROL RISK RATIO 2.86 (<5); CREATININE FOR GFR 0.78 MG/DL (0.55-1.30); FERRITIN 54.8 NG/ML (7.3-270.7); GLOMERULAR FILTRATION RATE > 60.0 (>58); GLUCOSE, FASTING 97 MG/DL (60-100); HDL CHOLESTEROL 57.9 MG/DL (>40); IRON (FE) 62 UG/DL (50-170); LDL CHOLESTEROL 88.7 MG/DL (<100); MAGNESIUM LEVEL 2.1 MG/DL (1.8-2.4); NON-HDL-C 108.1 MG/DL; PERCENT SATURATION 21.7 % (13.2-45.0); POTASSIUM SERUM 3.9 MMOL/L (3.5-5.1); SODIUM LEVEL 137 MMOL/L (136-145); THYROID STIMULATING HORMONE 0.961 uIU/ML (0.55-4.78); TOTAL 25(OH) VITAMIN D 39.8 NG/ML (20.0-100.0); TOTAL IRON BINDING CAPACITY 286 UG/DL (250-425); TOTAL PROTEIN 6.9 G/DL (5.7-8.2); TRIGLYCERIDES LEVEL 97 MG/DL (<150)
[2023-12-08 10:18] LABS: ERYTHROCYTE SEDIMENTATION RATE 32 mm/hr (0-20); FOLATE 14.3 NG/ML (>5.4)
[2023-12-08 10:19] LABS: FREE T4 1.09 NG/DL (0.89-1.76); VITAMIN B12 LEVEL 412 PG/ML (211-911)
[2023-12-08 10:44] LABS: HCG, SERUM QUALITATIVE NEGATIVE (NEGATIVE)
[2023-12-11 15:17] LABS: ANA PATTERN Nuclear, Speckled (NEGATIVE); ANA SCREEN, IFA POSITIVE (NEGATIVE); ANA TITER 1:40 titer (<1:40)
[2023-12-11 17:42] LABS: LYME TOTAL ANTIBODY CIA <= 0.90 Index (<=0.90)
== END ==
LOC: M WUC 08:08
PROVIDERS: ATTEND Nurse Practitioner Family
DX: Z00.00 Encounter for general adult medical examination without abnormal findings (principal); R42 Dizziness and giddiness; R53.83 Other fatigue

== ENCOUNTER → 2024-02-13 | Outpatient (CLI) | payer OTHER ==
[2024-02-13 17:20] LABS: BASO % 0.5 % (0.0-1.0); EOS # 0.1 10^3/uL (0.0-0.5); EOS % 1.2 % (0.0-3.0); HEMATOCRIT 39.2 % (36.0-47.0); HEMOGLOBIN 13.1 g/dl (12.0-15.5); LYMPH # 2.1 10^3/uL (1.5-5.0); LYMPH % 25.8 % (24.0-44.0); MEAN CORPUSCULAR HEMOGLOBIN 30.9 pg (27.0-33.0); MEAN CORPUSCULAR HGB CONC 33.4 g/dl (32.0-36.5); MEAN CORPUSCULAR VOLUME 92.5 fl (80.0-96.0); MONO # 0.7 10^3/uL (0.0-0.8); MONO % 8.6 % (2.0-8.0); NEUTROPHILS # 5.2 10^3/uL (1.5-8.5); NEUTROPHILS % 63.7 % (36.0-66.0); PLATELET COUNT, AUTOMATED 378 10^3/uL (150-450); RED BLOOD COUNT 4.24 10^6/uL (4.00-5.40); WHITE BLOOD COUNT 8.2 10^3/uL (4.0-10.0)
[2024-02-13 17:31] LABS: LDH LACTATE DEHYDROGENASE 153 U/L (120-246)
[2024-02-13 17:32] LABS: ALBUMIN 3.8 G/DL (3.2-5.2); ALKALINE PHOSPHATASE 75 U/L (46-116); ALT/SGPT 14 U/L (7.0-40); AST/SGOT < 8 U/L (<34); BILIRUBIN,TOTAL 0.3 MG/DL (0.3-1.2); BLOOD UREA NITROGEN 16 MG/DL (9-23); CALCIUM LEVEL 9.1 MG/DL (8.5-10.1); CARBON DIOXIDE LEVEL 26 MMOL/L (20-31); CHLORIDE LEVEL 105 MMOL/L (98-107); CREATININE FOR GFR 0.91 MG/DL (0.55-1.30); GLOMERULAR FILTRATION RATE > 60.0 (>58); GLUCOSE, FASTING 92 MG/DL (60-100); POTASSIUM SERUM 3.8 MMOL/L (3.5-5.1); SODIUM LEVEL 137 MMOL/L (136-145); TOTAL PROTEIN 7.3 G/DL (5.7-8.2)
[2024-02-13 17:42] LABS: ERYTHROCYTE SEDIMENTATION RATE 28 mm/hr (0-20)
== END ==
LOC: M WUC 14:25
PROVIDERS: ATTEND Nurse Practitioner Family
DX: N63.31 Unspecified lump in axillary tail of the right breast (principal)

== ENCOUNTER 2024-03-29 07:38 | Day surgery (SDC) | payer OTHER ==
[~2024-03-29] VITALS: Ht 167.6 cm; Wt 73.8 kg
[~2024-03-29 07:38] MED LIST changes: +LIDOCAINE 2% 100MG/5ML SDV (FOR ANES.) As Ordered ONE; +OMEG350C PO; +THERTAB52 PO; +propofoL 200 MG/20 ML VIAL As Ordered ONE
[2024-03-29] MEDS ORDERED: fentaNYL 100 MCG/2 ML INJECTION As Ordered ONE (08:12)
[2024-03-29 08:43] VITALS: TEMP 98
[2024-03-29 09:04] VITALS: BP 105/68; O2SAT 98
== END 2024-03-29 09:09 | disposition home or self-care (01) ==
LOC: M OPP 07:38
PROVIDERS: ATTEND Surgery
DX: Z12.11 Encounter for screening for malignant neoplasm of colon (principal); Z12.12 Encounter for screening for malignant neoplasm of rectum; K30 Functional dyspepsia; K58.9 Irritable bowel syndrome, unspecified; Z90.89 Acquired absence of other organs
CPT/HCPCS: 43235; 45378; J3010